=== PATIENT | female | born 1965 | race Caucasian/White ===

== ENCOUNTER 2016-05-03 09:36 | Emergency (ER) | payer OTHER ==
[~2016-05-03] VITALS: Ht 160 cm; Wt 106.4 kg
[~2016-05-03 09:36] MED LIST: ALBU18HF INH; B12/1TAB PO; BUPR200T PO; CHOL200025 PO; CYAN1TAB42 PO; DULO20CA PO; FENT1PAT9 TP; GEMF600T3 PO; HYDR25TA4 PO; KLO1T PO; METF1000 PO; METO100T3 PO; OMEP40CA36 PO; OXYC1TAB91 PO
--- NOTE | 2016-05-03 09:44 | ED.REPORT ---
HPI-General Illness Date of Service May 03, 2016 ED Provider: Jamie Pearson Patient is a 50 year old female with a history of chronic back pain who presents to the ED via EMS complaining of exacerbated back pain s/p ground level fall 4 days ago. She stepped on some ice, slipped, and landed on her L knee. Associated symptoms include L knee pain and trouble walking. She denies numbness, neck pain, or any other symptoms. She takes oxycodone and uses a fentanyl patch as prescribed by Dr. Goyo Urbina. Nursing Notes Stated Complaint: GROUND LEVEL FALL Chief Complaint: Back Pain or Injury Nursing Notes Reviewed: Yes Allergies: Coded Allergies: Bumble Bee (Verified Allergy, Unknown, 01/23/16) Penicillins (Verified Adverse Reaction, Severe, NAUSEA & VOMITING, 01/23/16 ) Uncoded Allergies: TEGEDERM (Allergy, Intermediate, rash and welts, 12/02/15) POLLEN (Adverse Reaction, Unknown, UNKNOWN, 05/17/14) Scheduled B12/Levomefolate Calcium/B-6 (Foltx Tablet) 1 Each Tablet 1 EACH PO DAILY Bupropion ER (Bupropion ER) 200 Mg Tablet.er 200 MG PO BID Cholecalciferol (Vitamin D3) (Vitamin D3) 2,000 Unit Tablet 2,000 UNIT PO DAILY Cyanocobalamin/Folic Acid (Vitamin Y10-Zdbvh Acid Tablet) 1 Each Tablet 1 EACH PO DAILY Duloxetine (Duloxetine) 30 Mg Capsule. 30 MG PO DAILY Duloxetine (Duloxetine) 60 Mg Capsule. 60 MG PO DAILY Fentanyl 50 mcg/hr Patch (Fentanyl 50 mcg/hr Patch) 1 Each Patch.td72 1 EACH TP Q3D Gemfibrozil (Gemfibrozil) 600 Mg Tablet 600 MG PO BID Hydrochlorothiazide (Hydrochlorothiazide) 25 Mg Tablet 25 MG PO DAILY Metformin (Glucophage) 1,000 Mg Tablet 2,000 MG PO DAILYWM Metoprolol Tartrate (Metoprolol Tartrate) 100 Mg Tablet 100 MG PO BID Omeprazole (Omeprazole) 40 Mg Capsule.dr 40 MG PO DAILY Scheduled PRN Albuterol Sulfate (Ventolin HFA Inhaler) 200 Puff/18 Gm Inhaler 2 PUFF INH Q4 PRN PRN For Wheezing Clonazepam (Clonazepam) 1 Mg Tab 2.5 MG PO HS PRN PRN For Anxiety MR UP TO TOTAL OF 10 TABS Naproxen (Naproxen) 500 Mg Tab 500 MG PO BID PRN PRN For Pain Oxycodone HCl/Acetaminophen (Endocet 10-325 mg Tablet) 1 Each Tablet 1 EACH PO QID PRN PRN For Pain General Time Seen by MD: 09:44 Chief Complaint Back pain Hx Obtained From: Patient Arrived By: Ambulance Sudden in Onset?: Yes Onset Occurred: 4 days ago Caused by: Fall on ground Past Medical History Past Medical History Notes: Patient reports she has non-specific palpitations. Past Medical History Bipolar disorder Seasonal asthma Chronic back pain Hypercholesterolemia sciatica Reports: Diabetes mellitus, Hypertension Reports: Depression Past Surgical History L4-5, L5-S1 fusion, 2007 CS x3 Bladder suspension Left foot surgery edometrial ablation Reports: Cholecystectomy, Tonsillectomy Family History DM HTN A-fib Alcoholism Smoking History Current Every Day Smoker, Heavy Tobacco Smoker Social History Alcohol Use: "Social" Drug Use: Denies drug use Other Social History: Lives alone Ambulatory Status Independent Review of Systems Full Review of Systems Musculoskeletal: Reports: Back pain, Joint pain (L knee ), Denies: Neck pain Neurologic: Reports: Problem walking, Denies: Numbness Complete sys rev & neg: except as marked. Physical Exam Vital Signs Vital Signs Date Time Temp Pulse Resp B/P Pulse Ox O2 Delivery O2 Flow Rate FiO2 05/03/16 13:12 62 18 112/72 95 Room Air 05/03/16 09:45 74 121/71 95 Room Air Initial VS: Reviewed Head / Eyes: Atraumatic, Normocephalic Neck: Full range of motion Respiratory: No respiratory distress Skin: Warm, Dry Neurologic: Alert, Oriented, Nonfocal Psychiatric: Mood/affect normal, Behavior normal, Normal thought content General/Constitutional: Awake, Alert, Well developed Distress / Hydration: Positive: Distress moderate Appearance / Presentation: Positive: Obese Lower Extremity / Pelvis / MS: No deformity, Neurologic intact, Vascular intact Intact motor and sensory function bilaterally. L leg limitations due to pain. 2+ dorsalis pedis pulses Interpretation & Diagnostics X-Ray Interpretation Xray Interpretation: IMPRESSION: No displaced fracture seen. If there is continued pain, followup exam or additional imaging such as MRI or CT could be performed for further assessment. Dictated by: Gerber BECKER Interpreted: Gray Dewey MD on 05/03/2016 at 12:46 Transcribed by: NIYAH on 05/03/2016 at 12:46 Study Performed: HIP AND PELVIS Interpretation / Wet Read by: Interpret - Radiologist Xray Interpretation: IMPRESSION: 1. Multilevel retrolisthesis redemonstrated. 2. Mild wedging of the L1 vertebral body unchanged. 3. Postsurgical changes. Dictated by: Gerber Metcalf RRA Interpreted: Gray Dewey MD on 05/03/2016 at 12:49 Transcribed by: NIYAH on 05/03/2016 at 12:49 Study Performed: LUMBAR SPINE Interpretation / Wet Read by: Interpret - Radiologist Re-Eval/Medical Decision Med Decision/Clinical Course Likely exacerbation of chronic pain from minor injury, no bony injury. X-rays were performed to the severity of the patient's perceived pain. The patient's pain promptly abated after she received a single oxycodone and Toradol. I question if there is a component of opiate withdrawal associated with this. In any rate she seems to be back to normal baseline and will be discharged Time of Eval: 12:54 Patient Status: Condition improved Re-Evaluation/Progress Note: Patiend is feeling much better and is ambulatory. Discussed imaging results and plan for discharge. Patient agrees to follow up with her PCP. Patient understands and agrees with plan. All questions addressed at this time. Counseled Regarding: Diagnosis, Lab results, Need for follow-up, When/why to return to ED Discharge & Departure Primary Impression: Low back pain Disposition: Home Discharge Condition All VS Reviewed: Yes Condition: Stable Additional Instructions: Use naproxen for pain. Follow-up with your regular doctor for further narcotic pain management. Return to ER as needed if worse. Referrals: Goyo Chin DO (PCP) Scribe Attestation Portions of this note were transcribed by Lindsay Park. I, Dr. Pearson personally performed the history, physical exam and medical decision-making; I reviewed and confirmed the accuracy of the information in the transcribed note. Signed by: Lindsay Park 05/03/16, [id number] copies to: Goyo Chin Timothy S DO May 03, 2016 09:44 LINDSAY PARK May 03, 2016 09:59
[2016-05-03 09:45] VITALS: BP 121/71; PULSE 74; O2SAT 95
[2016-05-03] MEDS ORDERED: oxyCODONE-Acetamin 10-325 mg Tablet PO ONE (09:55)
[2016-05-03] MEDS ORDERED: DULO30CA50 PO (11:40)
[2016-05-03] MEDS ORDERED: DULO60CA61 PO (11:40)
--- NOTE | 2016-05-03 12:47 | DRSVH ---
PROCEDURE: X-RAY PELVIS W/LAT HIP (LT) ([id number]) INDICATIONS: fall, back and hip/femur pain TECHNIQUE: AP pelvis with lateral view(s) of the left hip(s). COMPARISON: None. FINDINGS: Bones: No fractures or dislocations. Pelvic ring appears intact. No suspicious bony lesions. Lowe r lumbar spine fixation hardware present incompletely visualized. Multiple surgical clips. Soft tissues: The visualized bowel gas pattern is normal. No suspicious soft tissue calcifications. IMPRESSION: No displaced fracture seen. If there is continued pain, followup exam or additional viij ging such as MRI or CT could be performed for further assessment. Dictated by: Gerber Metcalf RRLeandro Interpreted: Gray Dewey MD on 05/03/2016 at 12:46 Transcribed by: NIYAH on 05/03/2016 at 12:46 Approved by: Gray Dewey M.D. on 05/07/2016 at 11:33
--- NOTE | 2016-05-03 12:49 | DRSVH ---
PROCEDURE: X-RAY LUMBAR SPINE, 2 OR 3 VIEW INDICATIONS: fall, back and hip/femur pain TECHNIQUE: 3 views of the lumbar spine were acquired. COMPARISON: [facility], , SPINE LUMB 2 OR 3VW, 04/21/2010, 17:39. FINDINGS: Bones: 5 [id number] vertebrae are present. Stable position of surgical hardware involving the l ower lumbar spine. Multilevel grade 1 retrolisthesis redemonstrated. bony alignment. No acute verte bral body compression fractures. Mild wedging of the L1 vertebral body unchanged. No suspicious bony lesions. Soft tissues: Overlying bowel gas pattern is normal. No suspicious soft tissue calcifications. Cho lecystectomy clips. IMPRESSION: 1. Multilevel retrolisthesis redemonstrated. 2. Mild wedging of the L1 vertebral body unchanged. 3. Postsurgical changes. Dictated by: Gerber BECKER Interpreted: Gray Dewey MD on 05/03/2016 at 12:49 Transcribed by: NIYAH on 05/03/2016 at 12:49 Approved by: Gray Dewey M.D. on 05/07/2016 at 11:33
[2016-05-03] MEDS ORDERED: NPR500T PO (13:05)
[2016-05-03 13:12] VITALS: BP 112/72; PULSE 62; RESP 18; O2SAT 95
== END 2016-05-03 13:13 | disposition home or self-care (01) ==
LOC: EDUNIT# 09:36 → EDBD 09:36 → SED 09:36
DX: M54.5 Low back pain (principal); W18.31XA Fall on same level due to stepping on an object, initial encounter; Y93.89 Activity, other specified; Y92.89 Other specified places as the place of occurrence of the external cause; Y99.8 Other external cause status; M25.562 Pain in left knee; R26.2 Difficulty in walking, not elsewhere classified; J45.998 Other asthma; I10 Essential (primary) hypertension; E11.9 Type 2 diabetes mellitus without complications; F17.200 Nicotine dependence, unspecified, uncomplicated; Z98.890 Other specified postprocedural states; Z79.84 Long term (current) use of oral hypoglycemic drugs; Z88.0 Allergy status to penicillin; Z91.030 Bee allergy status

== ENCOUNTER 2016-06-11 11:24 | Emergency (ER) | payer OTHER ==
[~2016-06-11] VITALS: Ht 160 cm; Wt 104.5 kg
[~2016-06-11 11:24] MED LIST changes: -DULO20CA PO; +DULO30CA50 PO; +DULO60CA61 PO; +NPR500T PO
[2016-06-11 11:27] VITALS: BP 141/82; PULSE 61; RESP 16; O2SAT 98
[2016-06-11] MEDS ORDERED: KLO1T PO ×2 (11:36)
[2016-06-11] MEDS ORDERED: ESOM40CA41 PO (11:36)
[2016-06-11] MEDS ORDERED: Ketorolac 30 mg/mL 2 mL Inj IM ONE (12:20)
--- NOTE | 2016-06-11 12:56 | DRSVH ---
PROCEDURE: X-RAY RIGHT HAND, MINIMUM THREE VIEWS ([id number]) INDICATIONS: trauma TECHNIQUE: 3 views of the hand(s) acquired. COMPARISON: None. FINDINGS: Bones: No fractures or dislocations. Carpal bones are normally aligned. No suspicious bony lesions . Soft tissues: No suspicious soft tissue calcifications. IMPRESSION: No trauma found. Dictated by: Wily Robertson M.D. on 06/11/2016 at 12:54 Approved by: Wily Robertson M.D. on 06/11/2016 at 12:55
--- NOTE | 2016-06-11 13:16 | ED.REPORT ---
HPI-Extremity Problem Upper Date of Service Jun 11, 2016 ED Provider: Cristobal Lr MD 50yoF with right upper extremity 3rd digit trigger finger and chronic back and neck pain with prior cervical and lumbar fusion surgery presents with right hand injury and worsening back pain. The patient states that she was moving her mattress when she was attempting to get her hand between the mattress and box- spring she felt her third metacarpophalangeal joint jam. She feels that she may have broken the metacarpal bone driving the MCP proximal towards her wrist. The patient also would like to be seen for your lower back. She was previously seen the in [facility] ED in April for chronic lower back pain. At her follow up appointment with her PCP Goyo Chin DO the patient was started on Flexeril in adjunct to her Fentanyl patch and Oxycodone. Nursing Notes Stated Complaint: RIGHT HAND PAIN Chief Complaint: Back Pain or Injury Nursing Notes Reviewed: Yes Allergies: Coded Allergies: Bumble Bee (Verified Allergy, Unknown, 06/11/16) Penicillins (Verified Adverse Reaction, Severe, NAUSEA & VOMITING, 06/11/16 ) Uncoded Allergies: TEGEDERM (Allergy, Intermediate, rash and welts, 12/02/15) POLLEN (Adverse Reaction, Unknown, UNKNOWN, 05/17/14) Scheduled B12/Levomefolate Calcium/B-6 (Foltx Tablet) 1 Each Tablet 4 EACH PO DAILY Bupropion ER (Bupropion ER) 200 Mg Tablet.er 200 MG PO BID Cholecalciferol (Vitamin D3) (Vitamin D3) 2,000 Unit Tablet 2,000 UNIT PO DAILY Clonazepam (Clonazepam) 1 Mg Tablet 2 MG PO HS Cyanocobalamin/Folic Acid (Vitamin N33-Cmwar Acid Tablet) 1 Each Tablet 1 EACH PO DAILY Duloxetine (Duloxetine) 30 Mg Capsule. 30 MG PO DAILY Duloxetine (Duloxetine) 60 Mg Capsule. 60 MG PO DAILY Esomeprazole Magnesium (Nexium) 40 Mg Capsule.dr 40 MG PO DAILY Fentanyl 50 mcg/hr Patch (Fentanyl 50 mcg/hr Patch) 1 Each Patch.td72 1 EACH TP Q3D Hydrochlorothiazide (Hydrochlorothiazide) 25 Mg Tablet 25 MG PO DAILY Metformin (Glucophage) 1,000 Mg Tablet 2,000 MG PO DAILYWM Metoprolol Tartrate (Metoprolol Tartrate) 100 Mg Tablet 100 MG PO BID Scheduled PRN Albuterol Sulfate (Ventolin HFA Inhaler) 200 Puff/18 Gm Inhaler 2 PUFF INH Q4 PRN PRN For Wheezing Clonazepam (Clonazepam) 1 Mg Tablet 1 MG PO DAILY PRN PRN For Anxiety Naproxen (Naproxen) 500 Mg Tab 500 MG PO BID PRN PRN For Pain Oxycodone HCl/Acetaminophen (Endocet 10-325 mg Tablet) 1 Each Tablet 1 EACH PO QID PRN PRN For Pain General Time Seen by MD: 12:00 Chief Complaint Hand Injury left Hx Obtained From: Patient Arrived By: Walk-in Onset Occurred: 1 day ago Symptom Duration: 1 day Caused by: Accidental Context: Occurred at: Home injury Location: : Hand right Quality: Painful, Sharp, Throbbing Severity: Current: Moderate Severity: Maximum: Severe Exacerbated by: Range of motion Recent Healthcare: Recent doctor visit, Previous diagnosis, Previous surgery, Prior workup Similar Sx Previous: Yes Past Medical History Past Medical History Notes: Patient reports she has non-specific palpitations. Past Medical History Bipolar disorder Seasonal asthma Chronic back pain Hypercholesterolemia sciatica Reports: Diabetes mellitus, Hypertension Reports: Depression Past Surgical History L4-5, L5-S1 fusion, 2007 CS x3 Bladder suspension Left foot surgery edometrial ablation Reports: Cholecystectomy, Tonsillectomy Family History DM HTN A-fib Alcoholism Smoking History Current Every Day Smoker, Heavy Tobacco Smoker Social History Alcohol Use: "Social" Drug Use: Denies drug use Other Social History: Lives alone Ambulatory Status Independent Review of Systems Basic Review of Systems Eyes: Vision NL, No discharge ENT: Hearing NL, No pain, No nasal congestion, No pharyngeal pain Respiratory: No shortness of breath, No cough, No wheeze Cardiovascular: No chest pain, No dyspnea on exertion, No orthopnea, No parox noct dyspnea, No palpitations GI: No abdominal pain, No anorexia : No dysuria, No frequency Hematologic: No bleeding, No bruising Endocrine: No cold intolerance, No heat intolerance, No weight gain, No weight loss Allergy / Immune: No allergy Psychiatric: Normal thought content Constitutional: Denies: Chills, Fever Musculoskeletal: Reports: Extremity pain, Lumbar pain, Neck pain Skin: Denies Rash Neurologic: Reports: Headache, Denies: Change LOC, Dizziness, Lightheaded, Spinning sensation Complete sys rev & neg: except as marked. Physical Exam Initial Vital Signs Vital Signs (First) Date Time Temp Pulse Resp B/P Pulse Ox O2 Delivery O2 Flow Rate FiO2 06/11/16 11:27 36.4 61 16 141/82 98 Room Air Initial VS: Reviewed General/Constitutional: Well-developed, Well-nourished Head / Eyes: Atraumatic, Normocephalic, PERRL ENT: Mucous membranes moist, Conjunctiva normal, No scleral icterus Neck: Supple, Non-tender, Full range of motion Respiratory: Breath sounds normal, Clear to auscultation, No respiratory distress Cardiovascular: Regular rate & rhythm, Heart sounds normal, Intact distal pulses Abdomen / GI: Soft, Non-tender, No guarding, No rebound, No distention Back: No CVA tenderness Lymphatic: No lymphadenopathy Lower Extremities: Vascular intact, Neuro intact, No swelling, No tenderness Skin: Warm, Dry, No cyanosis Neurologic: Alert, Oriented, Nonfocal Psychiatric: Mood/affect normal, Behavior normal, Normal thought content General/Constitutional: Awake, Alert, Well nourished, Cooperative Distress / Hydration: Positive: Distress mild Appearance / Presentation: Positive: Obese Neck: Supple, Full range of motion, No swelling, Non-tender Respiratory / Chest: Breath sounds NL, Breath sounds = bilat, No respiratory distress, No rales, No rhonchi Wheezing / Retractions: Positive: Wheezing mild Cardiovascular: Heart rate NL, Regular rhythm, Heart sounds NL, Peripheral circulation NL Upper Extremity / MS: Inspection NL, No erythema, No deformity, Neurologic intact, Vascular intact, No compartment syndrome, No circumferential injury, No clubbing/cyanosis, No edema Psychiatric: Judgment/insight NL, Thought content NL Abnormal Mood/Affect: Positive: Depressed, Labile Interpretation & Diagnostics X-Ray Interpretation Xray Interpretation: PROCEDURE: X-RAY RIGHT HAND, MINIMUM THREE VIEWS ([id number]) INDICATIONS: trauma TECHNIQUE: 3 views of the hand(s) acquired. COMPARISON: None. FINDINGS: Bones: No fractures or dislocations. Carpal bones are normally aligned. No suspicious bony lesions. Soft tissues: No suspicious soft tissue calcifications. IMPRESSION: No trauma found. Dictated by: Wily Robertson M.D. on 06/11/2016 at 12:54 Approved by: Wily Robertson M.D. on 06/11/2016 at 12:55 Interpretation / Wet Read by: Interpret - Radiologist Interpretation: Normal exam Re-Eval/Medical Decision Med Decision/Clinical Course 50yoF with history of right UE 3rd digit trigger finger and chronic lower back pain presents with mild trauma and pain in right UE 3rd metacarpal as well as worsening chronic lower back pain. The patient denies an injury to her back and stating that she was moving her couch and bed which resulted in back strain. Xray of the hand is negative for fracture. Toradol given and patient to follow up with hand surgeon and PCP. Discharge & Departure Impression: Primary Impression: Trigger finger, right middle finger Additional Impressions: Low back pain Lumbar strain Disposition: Home Patient Instructions: Acute Low Back Pain (ED), Low Back Strain (ED), Trigger Finger (ED) Additional Instructions: During you visit to [facility] Emergency Department we obtained xray imaging of your right hand which did not show any fractures. You received a dose of Toradol pain medication which is similar strength to Morphine but with anti-inflammatory properties. Your vital signs were stable and safe for discharge. We will send you home with - Naproxen Pain medications which works differently than the Oxycodone, Fentanyl, and Flexeril that you are currently taking from your PCP. Please take the Naproxen with food as this medication can upset your stomach. Due to your history of GERD only a short course of Naproxen will be prescribed to decrease inflammation. The pain medications you are taking are very sedating. When taking Oxycodone, Fentanyl, and Flexeril medications DO NOT drive, DO NOT drink alcohol, DO NOT take extra acetaminophen (Tylenol). Do not hesitate to call emergency services or your primary care physician if you experience any of the following. - High unrelenting fevers. - Uncontrolled vomiting. - Severe hypertension. - Syncope or loss of consciousness. - Chest pain or severe shortness of breath. Please call your PCP as soon as possible and schedule a ED follow up with your primary care physician in 1-2 weeks time following your emergency department visit for medication checks and general well-being. Referrals: Goyo Chin DO (PCP) EDSupervising Provider for APC: Cristobal Lr MD Attending Statement I discussed patient with resident. I saw and evaluated patient independently. I agree with plan as above. In brief, 50-year-old female with right middle trigger finger. Complaining of pain at that site. Question of trauma. X-ray no fractures. His over the trigger finger. Recommend pain control and follow- up for her surgery as scheduled. copies to: Goyo Chin Nicholas K DO Jun 11, 2016 12:35 Cristobal Lr MD Jun 11, 2016 13:31
[2016-06-11] MEDS ORDERED: NPR500T PO (13:20)
[2016-06-11 13:30] VITALS: BP 129/89; PULSE 60; RESP 16; O2SAT 97
== END 2016-06-11 13:31 | disposition home or self-care (01) ==
LOC: SED 11:55
DX: S39.012A Strain of muscle, fascia and tendon of lower back, initial encounter (principal); M65.331 Trigger finger, right middle finger; W23.0XXA Caught, crushed, jammed, or pinched between moving objects, initial encounter; Y93.E6 Activity, residential relocation; Y99.8 Other external cause status; Y92.019 Unspecified place in single-family (private) house as the place of occurrence of the external cause; J45.909 Unspecified asthma, uncomplicated; I10 Essential (primary) hypertension; E11.9 Type 2 diabetes mellitus without complications; F17.200 Nicotine dependence, unspecified, uncomplicated; G89.29 Other chronic pain; Z79.51 Long term (current) use of inhaled steroids; Z79.84 Long term (current) use of oral hypoglycemic drugs; Z88.0 Allergy status to penicillin
CPT/HCPCS: 73130; 96372; 99284; J1885

== ENCOUNTER 2016-10-18 17:27 | Emergency (ER) | payer OTHER ==
[~2016-10-18] VITALS: Ht 161.9 cm; Wt 102.0 kg
[~2016-10-18 17:27] MED LIST changes: +ESOM40CA41 PO; -GEMF600T3 PO; -OMEP40CA36 PO
[2016-10-18 17:41] VITALS: BP 108/74; PULSE 87; RESP 16; O2SAT 94
--- NOTE | 2016-10-18 18:48 | ED.REPORT ---
HPI-General Illness Date of Service Oct 18, 2016 ED Provider: Dr. Rose Pt is a 50 year old female with a hx of chronic back pain, DM and HTN presenting to the ED complaining of 8/10 shooting lower back pain onset at 1800 tonight. Denies any chest pain, SOB, fever, change in bowel or bladder control or other symptoms at this time. She reports that this pain is similar to her chronic back pain. She denies any recent injury. The pain radiates down her legs and is exacerbated by movement, relieved by standing up. No other complaints at this time. Nursing Notes Stated Complaint: BACK PAIN Chief Complaint: Back Pain or Injury Nursing Notes Reviewed: Yes Allergies: Coded Allergies: Bumble Bee (Verified Allergy, Unknown, 10/18/16) Penicillins (Verified Adverse Reaction, Severe, NAUSEA & VOMITING, 10/18/16) Uncoded Allergies: TEGEDERM (Allergy, Intermediate, rash and welts, 12/02/15) POLLEN (Adverse Reaction, Unknown, UNKNOWN, 05/17/14) Scheduled B12/Levomefolate Calcium/B-6 (Foltx Tablet) 1 Each Tablet 4 EACH PO DAILY Bupropion ER (Bupropion ER) 200 Mg Tablet.er 200 MG PO BID Cholecalciferol (Vitamin D3) (Vitamin D3) 2,000 Unit Tablet 2,000 UNIT PO DAILY Clonazepam (Clonazepam) 1 Mg Tablet 2 MG PO HS Cyanocobalamin/Folic Acid (Vitamin E25-Qlauy Acid Tablet) 1 Each Tablet 1 EACH PO DAILY Duloxetine (Duloxetine) 30 Mg Capsule. 30 MG PO DAILY Duloxetine (Duloxetine) 60 Mg Capsule. 60 MG PO DAILY Esomeprazole Magnesium (Nexium) 40 Mg Capsule. 40 MG PO DAILY Fentanyl 50 mcg/hr Patch (Fentanyl 50 mcg/hr Patch) 1 Each Patch.td72 1 EACH TP Q3D Hydrochlorothiazide (Hydrochlorothiazide) 25 Mg Tablet 25 MG PO DAILY Metformin (Glucophage) 1,000 Mg Tablet 2,000 MG PO DAILYWM Metoprolol Tartrate (Metoprolol Tartrate) 100 Mg Tablet 100 MG PO BID Scheduled PRN Albuterol Sulfate (Ventolin HFA Inhaler) 200 Puff/18 Gm Inhaler 2 PUFF INH Q4 PRN PRN For Wheezing Clonazepam (Clonazepam) 1 Mg Tablet 1 MG PO DAILY PRN PRN For Anxiety Naproxen (Naproxen) 500 Mg Tab 500 MG PO BID PRN PRN For Pain Oxycodone HCl/Acetaminophen (Endocet 10-325 mg Tablet) 1 Each Tablet 1 EACH PO QID PRN PRN For Pain General Time Seen by MD: 18:48 Chief Complaint Back pain Hx Obtained From: Patient Arrived By: Walk-in Sudden in Onset?: No Onset Occurred: 1 - 4 hours ago Symptom Duration: Since onset Location: : Back Quality: Painful Severity: Current: Severe Severity: Maximum: Severe Recent Healthcare: No recent doctor visit, No recent hospitalization Similar Sx Previous: Yes Past Medical History Past Medical History Notes: Patient reports she has non-specific palpitations. Past Medical History Bipolar disorder Seasonal asthma Chronic back pain Hypercholesterolemia sciatica Gastroparesis Reports: Diabetes mellitus, Hypertension Reports: Depression Past Surgical History L4-5, L5-S1 fusion, 2007 CS x3 Bladder suspension Left foot surgery edometrial ablation Reports: Cholecystectomy, Tonsillectomy Family History DM HTN A-fib Alcoholism Smoking History Current Every Day Smoker, Heavy Tobacco Smoker Social History Alcohol Use: "Social" Drug Use: Denies drug use Other Social History: Lives alone Ambulatory Status Independent Review of Systems Full Review of Systems Constitutional: Denies: Chills, Fever Respiratory: Denies: Shortness of breath Cardiovascular: Denies: Chest pain GI: Denies: Abdominal pain Musculoskeletal: Reports: Back pain Neurologic: Denies: Bladder dysfunction, Bowel dysfunction, Headache Physical Exam Nursing note and vitals reviewed. Constitutional: Well-developed, well-nourished. Not diaphoretic. Head: Normocephalic and atraumatic. Mouth/Throat: Oropharynx is clear and moist. No oropharyngeal exudate. Eyes: EOM are normal. Pupils are equal, round, and reactive to light. Neck: Supple, no tracheal deviation. Cardiovascular: Normal rate, regular rhythm. Equal and intact distal pulses throughout. Pulmonary/Chest: Effort normal and breath sounds normal. No respiratory distress. Abdominal: Soft. No distension. There is no tenderness, rebound, or guarding. Bowel sounds present. Musculoskeletal: Range of motion grossly intact, moving all extremities. No edema or tenderness appreciated. Neurological: AOx3. Grossly nonfocal exam. Strength and sensation intact and equal to bilateral upper and lower extremities. Skin: Warm and dry, no rashes or pallor appreciated. Psychiatric: Appropriate mood and affect. Behavior appears normal. Back: Diffuse lumbar paraspinal tenderness without bony tenderness. No external signs of trauma to spine. Vital Signs Vital Signs Date Time Temp Pulse Resp B/P Pulse Ox O2 Delivery O2 Flow Rate FiO2 10/18/16 20:08 74 18 116/71 96 Room Air 10/18/16 17:41 36.7 87 16 108/74 94 Room Air Initial VS: Reviewed Re-Eval/Medical Decision Med Decision/Clinical Course 50-year-old female with acute on chronic back pain. No red flags that would suggest a compressive syndrome such as cauda equina, including no bowel or bladder incontinence, urinary retention, fever, etc. Given Toradol here in the ED with some improvement in symptoms. Plan discharge with careful return precautions, PCP follow-up. Patient agreeable to the plan as stated, no other questions. Time of Eval: 19:48 Patient Status: Condition improved Re-Evaluation/Progress Note: Discussed plan for discharge. Pt understands and agrees. Counseled Regarding: Diagnosis, Lab results, Need for follow-up, When/why to return to ED Discharge & Departure Primary Impression: Acute exacerbation of chronic low back pain Disposition: Home Discharge Condition All VS Reviewed: Yes Condition: Improved Patient Instructions: Acute Low Back Pain (ED) Additional Instructions: Please call Dr. Chin tomorrow to arrange for a follow up appointment. Read the attached instructions. Return to the ED immediately if you develop any loss of bowel or bladder function, develop urinary retention (can't pee or lose control and pee yourself), fever, abdominal pain, weakness, or anything else of concern to you. Thank you for the opportunity to be a part of your care. Referrals: Goyo Chin DO (PCP) Alondra Attestation Portions of this note were transcribed by Mike Gutierrez. I, Dr. Rose personally performed the history, physical exam and medical decision-making; I reviewed and confirmed the accuracy of the information in the transcribed note. Signed by: Alondra Mansfield, 10/18/2016 at 1949. copies to: Goyo Chin William B MD Oct 18, 2016 18:48 MIKE GUTIERREZ Oct 18, 2016 19:39
[2016-10-18 20:08] VITALS: BP 116/71; PULSE 74; RESP 18; O2SAT 96
== END 2016-10-18 20:09 | disposition home or self-care (01) ==
LOC: SED 17:27
DX: M54.5 Low back pain (principal); G89.29 Other chronic pain; I10 Essential (primary) hypertension; E11.43 Type 2 diabetes mellitus with diabetic autonomic (poly)neuropathy; K31.84 Gastroparesis; J45.998 Other asthma; F31.9 Bipolar disorder, unspecified; F17.200 Nicotine dependence, unspecified, uncomplicated; Z98.890 Other specified postprocedural states; Z79.84 Long term (current) use of oral hypoglycemic drugs; Z88.0 Allergy status to penicillin; Z91.030 Bee allergy status
CPT/HCPCS: 96372; 99283; J1885

== ENCOUNTER 2017-01-06 12:25 | Emergency (ER) | payer OTHER ==
[~2017-01-06] VITALS: Ht 160 cm; Wt 95.5 kg
[~2017-01-06 12:25] MED LIST changes: +OXYC-408 PO; -OXYC1TAB91 PO
[2017-01-06 12:40] VITALS: BP 149/92; PULSE 91; RESP 20; O2SAT 100
--- NOTE | 2017-01-06 12:47 | ED.REPORT ---
HPI-Back Pain 40 and Over Date of Service Jan 06, 2017 ED Provider: Tim Ibarra MD A 51 year old female with a history of chronic pain, sciatica, L4-L5-S1 fusion in 2007, hypertension, diabetes, bipolar disorder and gastroparesis is brought to the ED via EMS due to back pain. 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 She hit her coccyx on the ceramic tile of her kitchen floor and is now experiencing severe low back pain, though she denies nausea. The pt is chronically on pain medications. She quit Fentanyl over one month ago and so has been taking her oxycodone more than usual. The pt is now out of oxycodone to treat her back pain. Nursing Notes Stated Complaint: LOW BACK PAIN Chief Complaint: Back Pain or Injury Nursing Notes Reviewed: Yes (Scandlines, Whispers not reocniled) Allergies: Coded Allergies: Bumble Bee (Verified Allergy, Unknown, 01/06/17) Penicillins (Verified Adverse Reaction, Severe, NAUSEA & VOMITING, 01/06/17 ) Uncoded Allergies: TEGEDERM (Allergy, Intermediate, rash and welts, 12/02/15) POLLEN (Adverse Reaction, Unknown, UNKNOWN, 05/17/14) Scheduled B12/Levomefolate Calcium/B-6 (Foltx Tablet) 1 Each Tablet 4 EACH PO DAILY Bupropion ER (Bupropion ER) 200 Mg Tablet.er 200 MG PO BID Cholecalciferol (Vitamin D3) (Vitamin D3) 2,000 Unit Tablet 2,000 UNIT PO DAILY Clonazepam (Clonazepam) 1 Mg Tablet 2 MG PO HS Cyanocobalamin/Folic Acid (Vitamin D00-Fpvbv Acid Tablet) 1 Each Tablet 1 EACH PO DAILY Duloxetine (Duloxetine) 30 Mg Capsule. 30 MG PO DAILY Duloxetine (Duloxetine) 60 Mg Capsule. 60 MG PO DAILY Esomeprazole Magnesium (Nexium) 40 Mg Capsule. 40 MG PO DAILY Fentanyl 50 mcg/hr Patch (Fentanyl 50 mcg/hr Patch) 1 Each Patch.td72 1 EACH TP Q3D Hydrochlorothiazide (Hydrochlorothiazide) 25 Mg Tablet 25 MG PO DAILY Metformin (Glucophage) 1,000 Mg Tablet 2,000 MG PO DAILYWM Metoprolol Tartrate (Metoprolol Tartrate) 100 Mg Tablet 100 MG PO BID Scheduled PRN Albuterol Sulfate (Ventolin HFA Inhaler) 200 Puff/18 Gm Inhaler 2 PUFF INH Q4 PRN PRN For Wheezing Clonazepam (Clonazepam) 1 Mg Tablet 1 MG PO DAILY PRN PRN For Anxiety Naproxen (Naproxen) 500 Mg Tab 500 MG PO BID PRN PRN For Pain Oxycodone HCl/Acetaminophen (Endocet 10-325 mg Tablet) 1 Each Tablet 1 EACH PO QID PRN PRN For Pain oxyCODONE-Acetaminophen 10-325 mg (oxyCODONE-Acetaminophen 10-325 mg) 1 Each Tablet 1 TABLET PO Q6H PRN PRN For Pain General Time Seen by MD: 12:39 Chief Complaint Back pain Hx Obtained From: Patient, EMS Arrived By: Ambulance Sudden in Onset?: Yes Onset Occurred: 31 - 45 minutes ago Symptom Duration: Since onset Recent Healthcare: Recent doctor visit Similar Sx Previous: Yes Past Medical History Past Medical History Notes: Past Medical History Bipolar disorder Seasonal asthma Chronic back pain Hypercholesterolemia Sciatica Gastroparesis Reports: Diabetes mellitus, Hypertension Reports: Depression Past Surgical History L4-5, L5-S1 fusion, 2007 CS x3 Bladder suspension Left foot surgery edometrial ablation Reports: Cholecystectomy, Tonsillectomy Family History DM HTN A-fib Alcoholism Smoking History Current Every Day Smoker, Heavy Tobacco Smoker Social History Alcohol Use: "Social" Drug Use: Denies drug use Other Social History: Lives alone Ambulatory Status Independent Review of Systems Respiratory: Denies: Non-productive cough, Shortness of breath Cardiovascular: Denies: Chest pain GI: Denies: Abdominal pain, Vomiting Musculoskeletal: Reports: Back pain, Denies: Neck pain Complete sys rev & neg: except as marked. Skin: Denies Rash Physical Exam Initial Vital Signs Vital Signs (First) Date Time Temp Pulse Resp B/P Pulse Ox O2 Delivery O2 Flow Rate FiO2 01/06/17 12:40 36.8 91 20 149/92 100 Room Air Initial VS: Reviewed, Vital signs normal Back: Full range of motion no palpable lumbar mass Neurologic: Oriented X3, Speech NL, No motor deficits, No sensory deficits Neck: Atraumatic, Supple, Full range of motion Lower Extremity / Pelvis / MS: Full range of motion, Neurologic intact, Vascular intact bruise on left leg Skin: Atraumatic, Color NL, No rash, Warm, Dry Head / Eyes: Atraumatic, Normocephalic, PERRL, EOMI ENT: Atraumatic, Airway patent, Mucous membranes moist Upper Extremity / MS: Atraumatic, Full range of motion Psychiatric: Affect NL, Mood NL Interpretation & Diagnostics Interpretation & Diagnostics: Lumbar Spine CT: IMPRESSION: No acute fracture or other acute bony abnormality can be seen. Intact hardware. Degenerative changes are seen, which are overall progressed compared to 2008. Dictated by: Jairo Guido M.D. on 01/06/2017 at 13:24 Approved by: Jairo Guido M.D. on 01/06/2017 at 13:32 Re-Eval/Medical Decision Source of Hx: Old records Re-Evaluation/Progress : Time of Eval: 14:27 Patient Status: Condition improved Re-Evaluation/Progress Note: Pt rechecked, whose condition has improved. The diagnosis and plan for discharge are discussed. The pt understands and agrees with the plan. All questions are addressed at this time. Counseled Regarding: Diagnosis, Lab results, Need for follow-up, When/why to return to ED Discharge & Departure Impression: Primary Impression: Lumbosacral strain Encounter type: initial encounter Qualified Code: S39.012A - Strain of muscle, fascia and tendon of lower back, initial encounter Disposition: Home Discharge Condition All VS Reviewed: Yes Condition: Stable Additional Instructions: 1. No fracture or major injury was appeciated on CT Scan of the lumbar spine. 2. Expect to be sore and stiff for a few days. 3. Activities as tolerated (being up and mobile has been demonstrated to shorten symptom) 4. I have written a refill of the oxycodone for initial pain management. Follow up with Dr. Bonilla. Referrals: Goyo Chin DO (PCP) Scribe Attestation Portions of this note were transcribed by Jessica Ramos. I, Dr. Ibarra personally performed the history, physical exam and medical decision-making; I reviewed and confirmed the accuracy of the information in the transcribed note. copies to: Goyo Chin Matthew F MD Jan 06, 2017 12:47 JESSICA RAMOS Jan 06, 2017 12:59
[2017-01-06] MEDS ORDERED: HYDROmorphone 1 mg/mL Inj IVPUSH ONE (12:55)
--- NOTE | 2017-01-06 13:34 | DRSVH ---
PROCEDURE: CT LUMBAR SPINE WITHOUT CONTRAST ([id number]) INDICATIONS: Back Pain, fall TECHNIQUE: Noncontrast 3 mm thick sections acquired from the T12 level to the sacrum. Sagittal and coronal refo rmats were constructed. For radiation dose reduction, the following was used: automated exposure co ntrol. COMPARISON: [facility], MR, LUMBAR SPINE W&W/O CONTRAST, 04/03/2009, 13:56. [facility], CR, SPINE LUMB BENDING MIN 4VW, 04/03/2009, 14:40. [facility], CR, SPIN E LUMB 2 OR 3VW, 05/23/2009, 9:14. FINDINGS: Image quality: Excellent. Bones: No acute vertebral body compression fractures. No suspicious lytic or blastic bony lesions. Central spinal caliber is of normal overall caliber. No pars defects. Mild levoconvex scoliotic curvature is noted. No focal AP alignment abnormality is seen. Postoperative changes are seen, with a left-sided pedicle screw at L4, bilateral pedicle screws at L5 , and a right-sided pedicle screw at S1. Anterior fixation plate is seen at L5-S1. The screws appea r well placed. No findings of hardware failure or hardware loosening are seen.There is associated st reak artifact seen. T12-L1: Normal. L1-L2: Mild loss of disc height is seen. There is a focal Schmorl's node seen involving the superior endplate of L2. Anteriorly, there is loss of disc height of 15-20%. No posterior displacement of f racture fragments can be seen. No acute features are seen. Mild generalized disc bulge is seen. Th ere is mild bilateral neural foraminal narrowing. Mild central canal narrowing is seen. These degen erative changes have progressed compared to 2008. L2-L3: The disc height is well-preserved. Mild generalized disc bulge is seen. Mild bilateral neural foraminal narrowing is seen, left more prominent than right. Mild central canal narrowing is seen. These findings are similar to the prior examination. L3-L4: The disc height is well preserved. [id number] disc bulge is seen. Mild facet joint hyp ertrophy is seen. Mild bilateral neural foraminal narrowing is seen. Mild central canal narrowing is seen. These findings are similar to the prior examination. L4-L5: Fusion changes are seen at this level. There is moderate left-sided and no significant right- sided neural foraminal narrowing seen. No significant central canal narrowing is seen. These imaging findings are mildly progressed compared to the prior study. L5-S1: Fusion changes are seen at this level. No significant neural foraminal or central canal narrow ing are seen. Soft tissues: No retroperitoneal masses or hematomas. Visualized aorta is normal in caliber. IMPRESSION: No acute fracture or other acute bony abnormality can be seen. Intact hardware. Degenerative changes are seen, which are overall progressed compared to 2009. Dictated by: Jairo Guido M.D. on 01/06/2017 at 13:24 Approved by: Jairo Guido M.D. on 01/06/2017 at 13:32
[2017-01-06] MEDS ORDERED: OXYC-466 PO (14:34)
[2017-01-06 15:16] VITALS: BP 139/81; PULSE 85; RESP 16; O2SAT 97
== END 2017-01-06 15:10 | disposition home or self-care (01) ==
LOC: EDBD 12:25 → SED 12:55
DX: S39.012A Strain of muscle, fascia and tendon of lower back, initial encounter (principal); W01.198A Fall on same level from slipping, tripping and stumbling with subsequent striking against other object, initial encounter; Y93.01 Activity, walking, marching and hiking; Y99.8 Other external cause status; Y92.000 Kitchen of unspecified non-institutional (private) residence as the place of occurrence of the external cause; I10 Essential (primary) hypertension; E11.9 Type 2 diabetes mellitus without complications; F17.200 Nicotine dependence, unspecified, uncomplicated; Z90.49 Acquired absence of other specified parts of digestive tract; Z79.51 Long term (current) use of inhaled steroids; Z79.84 Long term (current) use of oral hypoglycemic drugs; Z88.0 Allergy status to penicillin
CPT/HCPCS: 72131; 82948; 96374; 96375; 99285; J1170; J1885